=== PATIENT | female | born 1955 | race Caucasian/White ===

== ENCOUNTER → 2017-06-03 | Outpatient (REF) | payer OTHER ==
[2017-06-03 16:38] LABS: FERRITIN 19 NG/ML (8-252); IRON (FE) 109 UG/DL (50-170); PERCENT SATURATION 30.4 % (13.2-45.0); TOTAL IRON BINDING CAPACITY 359 UG/DL (250-450)
[2017-06-03 16:52] LABS: VITAMIN B12 LEVEL 530 PG/ML (247-911)
== END ==
LOC: M LAB REF 16:03
DX: D64.9 Anemia, unspecified (principal)

== ENCOUNTER 2018-05-08 05:49 | Day surgery (SDC) | payer OTHER ==
[2018-05-08 06:23] LABS: HEMOGLOBIN 12.1 g/dl (12.0-15.5); MEAN CORPUSCULAR HEMOGLOBIN 31.8 pg (27.0-33.0); MEAN CORPUSCULAR HGB CONC 32.7 g/dl (32.0-36.5); MEAN CORPUSCULAR VOLUME 97.1 fl (80.0-96.0); PLATELET COUNT, AUTOMATED 229 10^3/uL (150-450); RED BLOOD COUNT 3.81 10^6/uL (4.00-5.40); RED CELL DISTRIBUTION WIDTH 13.2 % (11.5-14.5); WHITE BLOOD COUNT 5.6 10^3/uL (4.0-10.0)
[2018-05-08] MEDS: LR 1,000 ML IV ×4 (06:50→21:37)
[2018-05-08] MEDS ORDERED: KETOROLAC 60 MG/2 ML VIAL (J1885) As Ordered (07:55)
[2018-05-08] MEDS ORDERED: ONDANSETRON 4MG/2ML VIAL (J2405) As Ordered ×2 (07:55→10:44)
[2018-05-08] MEDS ORDERED: LIDOCAINE 2% INJ 100 MG/5 ML SDV (FOR ANES.) As Ordered (07:55)
[2018-05-08] MEDS ORDERED: NEOSTIGMINE 10 MG/10 ML VIAL (J2710) As Ordered (07:55)
[2018-05-08] MEDS ORDERED: GLYCOPYRROLATE INJ 0.2 MG/ML 2 ML VIAL As Ordered (07:55)
[2018-05-08] MEDS ORDERED: dexameTHASONE 4 MG/ML 1ML VIAL (J1100) As Ordered (07:55)
[2018-05-08] MEDS ORDERED: fentaNYL 250 MCG/5 ML INJECTION (J3010) As Ordered (07:55)
[2018-05-08] MEDS ORDERED: MIDAZOLAM INJ 2 MG/2 ML VIAL (J2250) As Ordered (07:55)
[2018-05-08] MEDS ORDERED: ROCURONIUM BROMIDE 50 MG/5 ML VIAL As Ordered (07:55)
[2018-05-08] MEDS ORDERED: PROPOFOL 200 MG/20 ML VIAL As Ordered (07:55)
[2018-05-08] MEDS ORDERED: ePHEDrine SULFATE 25 MG/5 ML(5MG/ML) SYRINGE As Ordered ×2 (09:10→09:48)
[2018-05-08] MEDS ORDERED: PHENYLEPHRINE INJ 10MG/ML VIAL (J2370) As Ordered (10:36)
[2018-05-08] MEDS ORDERED: PHENYLephrine HCL 500 MCG/5 ML (100MCG/ML) SYRINGE (J2370) As Ordered (10:37)
[2018-05-08] MEDS ORDERED: HYDROMORPHONE HCL 0.5 MG/ 0.5 ML SYRINGE (J1170 PER 1) As Ordered ×2 (10:38→10:44)
[2018-05-08] MEDS: HYDROMORPHONE HCL 0.5 MG/ 0.5 ML SYRINGE (J1170 PER 1) IV ×5 (10:40→11:00)
[2018-05-08] MEDS ORDERED: MORPHINE 1MG/ML IN 0.9% NACL 100ML IV BAG As Ordered (10:44)
[2018-05-08] MEDS: ONDANSETRON 4MG/2ML VIAL (J2405) IV (10:45)
[2018-05-08] MEDS ORDERED: EPIDURAL/PCA KEYS XX (10:45)
[2018-05-08] MEDS ORDERED: diphenhydrAMINE INJ 50MG/ML VIAL (J1200) IV (10:45)
[2018-05-08] MEDS ORDERED: NALOXONE INJ 0.4 MG/1 ML VIAL (J2310) IV (10:45)
[2018-05-08] MEDS: LACTATED RINGER'S 1000 ML IV (10:45)
[2018-05-08] MEDS ORDERED: NALBUPHINE HCL 10 MG/ML AMP (J2300) IV (10:45)
[2018-05-08] MEDS: PHENYLEPHRINE HCL INJ 10 MG in D5W 99 ML IV (10:45)
[2018-05-08] MEDS ORDERED: PERCOCET 5MG/325MG TAB PO (10:45)
[2018-05-08] MEDS ORDERED: fentaNYL 100 MCG/2 ML INJECTION (J3010) IV (10:45)
[2018-05-08] MEDS ORDERED: IBUPROFEN 600 MG TAB PO (11:00)
[2018-05-08] MEDS: MORPHINE 1MG/ML IN 0.9% NACL 100ML IV BAG IV (11:00)
[2018-05-09 04:10] LABS: MEAN CORPUSCULAR HEMOGLOBIN 31.9 pg (27.0-33.0); MEAN CORPUSCULAR HGB CONC 33.3 g/dl (32.0-36.5); MEAN CORPUSCULAR VOLUME 95.7 fl (80.0-96.0); PLATELET COUNT, AUTOMATED 177 10^3/uL (150-450); RED BLOOD COUNT 2.82 10^6/uL (4.00-5.40); RED CELL DISTRIBUTION WIDTH 13.2 % (11.5-14.5)
[2018-05-09] MEDS: LR 1,000 ML IV (06:08)
[2018-05-09] MEDS: NORCO, ANEXSIA 5/325MG TABLET (HYDROcodone/ACETAMINOPHEN) PO (06:29)
[2018-05-09 08:59] LABS: HEMATOCRIT 26.7 % (36.0-47.0); HEMOGLOBIN 9.2 g/dl (12.0-15.5); MEAN CORPUSCULAR HEMOGLOBIN 32.9 pg (27.0-33.0); MEAN CORPUSCULAR HGB CONC 34.5 g/dl (32.0-36.5); MEAN CORPUSCULAR VOLUME 95.4 fl (80.0-96.0); PLATELET COUNT, AUTOMATED 195 10^3/uL (150-450); RED CELL DISTRIBUTION WIDTH 13.4 % (11.5-14.5); WHITE BLOOD COUNT 12.1 10^3/uL (4.0-10.0)
== END 2018-05-09 10:50 | disposition home or self-care (01) ==
LOC: M SDC 05:49 → M MSPAV 11:58
DX: N81.2 Incomplete uterovaginal prolapse (principal); T83.9XXA Unspecified complication of genitourinary prosthetic device, implant and graft, initial encounter; Z79.899 Other long term (current) drug therapy; Y82.8 Other medical devices associated with adverse incidents; Y84.8 Other medical procedures as the cause of abnormal reaction of the patient, or of later complication, without mention of misadventure at the time of the procedure
CPT/HCPCS: 58262

== ENCOUNTER → 2018-09-15 | Outpatient (REF) | payer OTHER ==
[~2018-09-15] MED LIST: FOSA70TA PO; MULT1TAB10 PO; VITA50005 PO
[2018-09-15 12:21] LABS: PERCENT SATURATION 10.2 % (13.2-45.0)
== END ==
LOC: M LAB REF 11:48
PROVIDERS: ATTEND Internal Medicine
DX: D64.9 Anemia, unspecified (principal)

== ENCOUNTER → 2019-03-17 | Outpatient (REF) | payer OTHER ==
[2019-03-17 14:07] LABS: PERCENT SATURATION 37.1 % (13.2-45.0)
== END ==
LOC: M LAB REF 12:47
PROVIDERS: ATTEND Internal Medicine
DX: D64.9 Anemia, unspecified (principal)

== ENCOUNTER → 2019-04-06 | Outpatient (REF) | payer OTHER ==
[2019-04-06 12:21] LABS: BLOOD UREA NITROGEN 14 MG/DL (7-18); CREATININE FOR GFR 0.52 MG/DL (0.55-1.30); GLOMERULAR FILTRATION RATE > 60.0 (>45)
== END ==
LOC: M LABDRAW1 11:14
PROVIDERS: ATTEND Orthopaedic Surgery
DX: M67.472 Ganglion, left ankle and foot (principal)

== ENCOUNTER 2019-06-11 07:51 | Day surgery (SDC) | payer OTHER ==
[~2019-06-11] VITALS: Ht 165.1 cm; Wt 42.5 kg
[~2019-06-11 07:51] MED LIST changes: +FERR325T3 PO; +MULTCAP PO; +NS 1,000 ML IV ONE
[2019-06-11] MEDS ORDERED: PROL60SO SC (08:20)
[2019-06-11] MEDS ORDERED: propofoL 200 MG/20 ML VIAL As Ordered ONE ×3 (08:25→08:53)
[2019-06-11] MEDS ORDERED: LIDOCAINE 2% INJ 100 MG/5 ML SDV (FOR ANES.) As Ordered ONE (08:25)
[2019-06-11] MEDS ORDERED: ePHEDrine SULFATE 25 MG/5 ML(5MG/ML) SYRINGE As Ordered ONE (08:36)
[2019-06-11] MEDS ORDERED: PHENYLephrine HCL 500 MCG/5 ML (100MCG/ML) SYRINGE (J2370) As Ordered ONE (08:36)
--- NOTE | 2019-06-11 08:58 | ROOR ---
Patient Name: Micaela Mccollum Procedure Date: 06/11/2019 8:26 AM Date of : 1955 Age: 63 Room: [facility] Gender: Female Note Status: Finalized Procedure: Upper GI endoscopy Indications: Iron deficiency anemia Providers: Anthony Soria Jr, MD Referring MD: Emy Toledo DO Requesting Provider: Medicines: Propofol per Anesthesia Complications: No immediate complications. Procedure: Pre-Anesthesia Assessment: - Prior to the procedure, a History and Physical was performed, and patient medications and allergies were reviewed. The patient is competent. The risks and benefits of the procedure and the sedation options and risks were discussed with the patient. All questions were answered and informed consent was obtained. Patient identification and proposed procedure were verified by the physician and the nurse in the pre-procedure area and in the procedure room. Mental Status Examination: alert and oriented. Airway Examination: normal oropharyngeal airway and neck mobility. Respiratory Examination: clear to auscultation. CV Examination: normal. ASA Grade Assessment: II - A patient with mild systemic disease. After reviewing the risks and benefits, the patient was deemed in satisfactory condition to undergo the procedure. The anesthesia plan was to use moderate sedation / analgesia (conscious sedation). Immediately prior to administration of medications, the patient was re-assessed for adequacy to receive sedatives. The heart rate, respiratory rate, oxygen saturations, blood pressure, adequacy of pulmonary ventilation, and response to care were monitored throughout the procedure. The physical status of the patient was re-assessed after the procedure. The Endoscope was introduced through the mouth, and advanced to the second part of duodenum. The upper GI endoscopy was accomplished without difficulty. The patient tolerated the procedure well. Findings: The upper third of the esophagus, middle third of the esophagus and lower third of the esophagus were normal. A medium-sized hiatal hernia was present. The cardia, gastric fundus, gastric antrum, prepyloric region of the stomach and pylorus were normal. Two non-bleeding linear gastric ulcers were found in the gastric body. The largest lesion was 2 mm in largest dimension. Biopsies were taken with a cold forceps for histology. To prevent bleeding after the biopsy, one hemostatic clip was successfully placed. There was no bleeding at the end of the procedure. The duodenal bulb, first portion of the duodenum and second portion of the duodenum were normal. Impression: - Normal upper third of esophagus, middle third of esophagus and lower third of esophagus. - Medium-sized hiatal hernia. - Normal cardia, gastric fundus, antrum, prepyloric region of the stomach and pylorus. - Non-bleeding gastric ulcers. Biopsied. Clip was placed. - Normal duodenal bulb, first portion of the duodenum and second portion of the duodenum. Recommendation: - Discharge patient to home (ambulatory). - Return to my office in 2 weeks. Anthony Soria MD Anthony Soria Jr, MD 06/11/2019 8:57:56 AM Electronically signed by Anthony Soria Jr, MD Number of Addenda: 0 Note Initiated On: 06/11/2019 8:26 AM Estimated Blood Loss: Estimated blood loss: none.
--- NOTE | 2019-06-11 09:00 | ROOR ---
Patient Name: Micaela Mccolulm Procedure Date: 06/11/2019 8:27 AM Date of : 1955 Age: 63 Room: [facility] Gender: Female Note Status: Finalized Procedure: Colonoscopy Indications: Iron deficiency anemia Providers: Anthony Soria Jr, MD Referring MD: Emy Toledo DO Requesting Provider: Medicines: Propofol per Anesthesia Complications: No immediate complications. Procedure: Pre-Anesthesia Assessment: - Prior to the procedure, a History and Physical was performed, and patient medications and allergies were reviewed. The patient is competent. The risks and benefits of the procedure and the sedation options and risks were discussed with the patient. All questions were answered and informed consent was obtained. Patient identification and proposed procedure were verified by the physician and the nurse in the pre-procedure area and in the procedure room. Mental Status Examination: alert and oriented. Airway Examination: normal oropharyngeal airway and neck mobility. Respiratory Examination: clear to auscultation. CV Examination: normal. ASA Grade Assessment: II - A patient with mild systemic disease. After reviewing the risks and benefits, the patient was deemed in satisfactory condition to undergo the procedure. The anesthesia plan was to use moderate sedation / analgesia (conscious sedation). Immediately prior to administration of medications, the patient was re-assessed for adequacy to receive sedatives. The heart rate, respiratory rate, oxygen saturations, blood pressure, adequacy of pulmonary ventilation, and response to care were monitored throughout the procedure. The physical status of the patient was re-assessed after the procedure. The Colonoscope was introduced through the anus and advanced to the cecum, identified by appendiceal orifice and ileocecal valve. The colonoscopy was performed without difficulty. The patient tolerated the procedure well. The quality of the bowel preparation was adequate. Findings: The rectum, recto-sigmoid colon, sigmoid colon, descending colon, transverse colon, ascending colon, cecum, appendiceal orifice and ileocecal valve appeared normal. Impression: - The rectum, recto-sigmoid colon, sigmoid colon, descending colon, transverse colon, ascending colon, cecum, appendiceal orifice and ileocecal valve are normal. - No specimens collected. Recommendation: - Discharge patient to home (ambulatory). - Repeat colonoscopy in 10 years for screening purposes. Anthony Soria MD Anthony Soria Jr, MD 06/11/2019 8:59:47 AM Electronically signed by Anthony Soria Jr, MD Number of Addenda: 0 Note Initiated On: 06/11/2019 8:27 AM Estimated Blood Loss: Estimated blood loss: none.
[2019-06-11 09:25] VITALS: BP 90/53
== END 2019-06-11 09:34 | disposition home or self-care (01) ==
LOC: M OPP 07:51
PROVIDERS: ATTEND Surgery
DX: K44.9 Diaphragmatic hernia without obstruction or gangrene (principal); K25.9 Gastric ulcer, unspecified as acute or chronic, without hemorrhage or perforation; D50.9 Iron deficiency anemia, unspecified

== ENCOUNTER → 2019-06-16 | Outpatient (REF) | payer OTHER ==
[~2019-06-16] MED LIST changes: -NS 1,000 ML IV ONE; +PROL60SO SC
== END ==
LOC: M LAB REF 17:52
PROVIDERS: ATTEND Orthopaedic Surgery
DX: I80.02 Phlebitis and thrombophlebitis of superficial vessels of left lower extremity (principal)

== ENCOUNTER → 2020-02-16 | Outpatient (REF) | payer OTHER ==
[2020-02-16 14:31] LABS: PERCENT SATURATION 35.6 % (13.2-45.0)
== END ==
LOC: M LAB REF 12:23
PROVIDERS: ATTEND Internal Medicine
DX: D50.9 Iron deficiency anemia, unspecified (principal)

== ENCOUNTER → 2020-09-13 | Outpatient (REF) | payer OTHER | LOC: M LAB REF 12:10 | PROVIDERS: ATTEND Internal Medicine | DX: M81.0 Age-related osteoporosis without current pathological fracture (principal) ==

== ENCOUNTER → 2021-01-25 | Outpatient (CLI) | payer OTHER ==
[~2021-01-25] MED LIST changes: +ERGO500029 PO; +MULT-90 PO
== END ==
LOC: M LABSMTC 09:27
PROVIDERS: ATTEND Anesthesiology
DX: Z01.812 Encounter for preprocedural laboratory examination (principal)

== ENCOUNTER 2021-01-27 08:26 | Day surgery (SDC) | payer MEDICARE ==
[~2021-01-27] VITALS: Ht 165.1 cm; Wt 40.8 kg
[~2021-01-27 08:26] MED LIST changes: +BSS IRR 500ML/OMIDRIA 4ML IRR BAG (OR ONLY) As Ordered ONE; +BSS IRR 500ML/OMIDRIA 4ML IRR BAG (OR ONLY) IO ONE; +CEFUROXIME 1MG/0.1ML INTRACAMERAL INJ As Ordered ONE; +CEFUROXIME 1MG/0.1ML INTRACAMERAL INJ ICAM ONE; +DUOVISC (0.50ML VISCOAT/0.85ML PROVISC) OPHTH KIT As Ordered ONE; +LIDOCAINE 1% SDV 5ML VIAL As Ordered ONE; +MIDAZOLAM INJ 2MG/2ML VIAL (J2250 PER 1MG) As Ordered ONE; +OFLOXACIN 0.3 % (OCUFLOX) OPTH SOL 5ML OD SCH; +PHENYLEPHRINE 2.5% OPHTH SOL 2ML OD SCH; +PROPARACAINE 0.5% OPHTH SOL 15ML OD ONE; +TROPICAMIDE 1% OPHTH SOLN 2ML OD SCH
[2021-01-27] MEDS ORDERED: MIDAZOLAM INJ 2MG/2ML VIAL (J2250 PER 1MG) As Ordered ONE (09:19)
[2021-01-27 11:00] VITALS: BP 141/55
--- NOTE | 2021-01-27 15:56 | ROOPDOC ---
[facility] Report Of Operation Report of Operation DATE OF PROCEDURE: 01/27/21 PREPROCEDURE DIAGNOSES: Mature cataract right eye. POSTPROCEDURE DIAGNOSES: Same. PROCEDURE PERFORMED: Phacoemulsification cataract extraction implantation intraocular lens right eye. SURGEON: Remberto Romeo MD LABORATORY TECHNICIAN: None ANESTHESIA: MAC. ESTIMATED BLOOD LOSS: Approximately 0 cc mL. COMPLICATIONS: None. LENS: 20.5. diopters SPECIMENS REMOVED: None INDICATIONS: Patient experienced decreased vision associated with cataract formation. Slit-lamp examination confirmed the diagnosis. Informed consent was obtained for removal of the cataract and placement of intraocular lens. PROCEDURE NOTE: Patient was identified in the holding room and the operative eye was marked. Patient was wheeled spine the OR suite and positioned on the stretcher. The lids lashes and periocular face of the operative eye were prepped with 5% povidone iodine. The lashes were taped with a Tegaderm andreina ssing. A speculum was placed in the operative eye. 1 mm side-port was created. 1% preservative-free lidocaine was injected. Viscoat was injected. A 2.6 mm stepped groove clear cornea incision was made temporally. A bent cystotome needle and Utrata forceps were used to fashion a continuous curvilinear capsulorhexis. BSS was used to hydrodissect. The lens was found to rotate freely. The lens was phacoemulsified using a divide and conquer technique. Residual cortex was removed with the I/A. Provisc was injected to expand the capsular bag. The lens was injected using the lens delivery system and positioned with a Devon hook. Residual viscoelastic was removed with the I/A. BSS was used to hydrate the corneal wound. Antibiotic prophylaxis was injected. The speculum was removed from the eye. A shield was taped over the eye. The patient was sent in excellent condition to the recovery room with a shield. REMBERTO ROMEO M.D. Jan 27, 2021 15:56
== END 2021-01-27 11:20 | disposition home or self-care (01) ==
LOC: M SDC 08:26
PROVIDERS: ATTEND Ophthalmology
DX: H25.11 Age-related nuclear cataract, right eye (principal); D64.9 Anemia, unspecified; M81.0 Age-related osteoporosis without current pathological fracture; F41.9 Anxiety disorder, unspecified; Z79.899 Other long term (current) drug therapy
CPT/HCPCS: 66984; J1097; J2250; U0002; V2632

== ENCOUNTER → 2021-03-06 | Outpatient (CLI) | payer MEDICARE ==
[~2021-03-06] MED LIST changes: -BSS IRR 500ML/OMIDRIA 4ML IRR BAG (OR ONLY) As Ordered ONE; -BSS IRR 500ML/OMIDRIA 4ML IRR BAG (OR ONLY) IO ONE; -CEFUROXIME 1MG/0.1ML INTRACAMERAL INJ As Ordered ONE; -CEFUROXIME 1MG/0.1ML INTRACAMERAL INJ ICAM ONE; -DUOVISC (0.50ML VISCOAT/0.85ML PROVISC) OPHTH KIT As Ordered ONE; -LIDOCAINE 1% SDV 5ML VIAL As Ordered ONE; -MIDAZOLAM INJ 2MG/2ML VIAL (J2250 PER 1MG) As Ordered ONE; -OFLOXACIN 0.3 % (OCUFLOX) OPTH SOL 5ML OD SCH; -PHENYLEPHRINE 2.5% OPHTH SOL 2ML OD SCH; -PROPARACAINE 0.5% OPHTH SOL 15ML OD ONE; -TROPICAMIDE 1% OPHTH SOLN 2ML OD SCH
== END ==
LOC: M LABSMTC 09:19
PROVIDERS: ATTEND Anesthesiology
DX: Z01.812 Encounter for preprocedural laboratory examination (principal); Z20.822 Contact with and (suspected) exposure to COVID-19

== ENCOUNTER 2021-03-10 07:27 | Day surgery (SDC) | payer MEDICARE ==
[~2021-03-10] VITALS: Ht 165.1 cm; Wt 39.6 kg
[~2021-03-10 07:27] MED LIST changes: +BSS IRR 500ML/OMIDRIA 4ML IRR BAG (OR ONLY) As Ordered ONE; +CEFUROXIME 1MG/0.1ML INTRACAMERAL INJ As Ordered ONE; +DUOVISC (0.50ML VISCOAT/0.85ML PROVISC) OPHTH KIT As Ordered ONE; +MIDAZOLAM INJ 2MG/2ML VIAL (J2250 PER 1MG) As Ordered ONE; +PHENYLEPHRINE 1.5%/LIDOCAINE 1% INTRAOCULAR 0.8ML SYRINGE As Ordered ONE; +PROPARACAINE 0.5% OPHTH SOL 15ML OS ONE; +fentaNYL 100 MCG/2 ML INJECTION (J3010) As Ordered ONE
[2021-03-10] MEDS: TROPICAMIDE 1% OPHTH SOLN 2ML OS SCH ×2 (08:09→08:16)
[2021-03-10] MEDS: OFLOXACIN 0.3 % (OCUFLOX) OPTH SOL 5ML OS SCH ×2 (08:09→08:16)
[2021-03-10] MEDS: PHENYLEPHRINE 2.5% OPHTH SOL 2ML OS SCH ×2 (08:09→08:16)
[2021-03-10] MEDS ORDERED: MIDAZOLAM INJ 2MG/2ML VIAL (J2250 PER 1MG) As Ordered ONE (08:49)
[2021-03-10 09:36] VITALS: BP 112/48
--- NOTE | 2021-03-10 13:49 | ROOPDOC ---
[facility] Report Of Operation Report of Operation PREPROCEDURE DIAGNOSES: Mature cataract left eye. POSTPROCEDURE DIAGNOSES: Same. PROCEDURE PERFORMED: Phacoemulsification cataract extraction implantation intraocular lens left eye. SURGEON: Remberto Romeo MD DATA ANALYST REPORT WRITER: None ANESTHESIA: MAC. ESTIMATED BLOOD LOSS: Approximately 0 cc mL. COMPLICATIONS: None. LENS: 20.5. diopters SPECIMENS REMOVED: None INDICATIONS: Patient experienced decreased vision associated with cataract formation. Slit-lamp examination confirmed the diagnosis. Informed consent was obtained for removal of the cataract and placement of intraocular lens. PROCEDURE NOTE: Patient was identified in the holding room and the operative eye was marked. Patient was wheeled spine the OR suite and positioned on the stretcher. The lids lashes and periocular face of the operative eye were prepped with 5% povidone iodine. The lashes were taped with a Tegaderm dressing. A speculum was placed in the operative eye. 1 mm side-port was created. 1% preservative-free lidocaine was injected. Viscoat was injected. A 2.6 mm stepped groove clear cornea incision was made temporally. A bent cystotome needle and Utrata forceps were used to fashion a continuous cu rvilinear capsulorhexis. BSS was used to hydrodissect. The lens was found to rotate freely. The lens was phacoemulsified using a divide and conquer technique. Residual cortex was removed with the I/A. Provisc was injected to expand the capsular bag. The lens was injected using the lens delivery system and positioned with a Devon hook. Residual viscoelastic was removed with the I/A. BSS was used to hydrate the corneal wound. Antibiotic prophylaxis was injected. The speculum was removed from the eye. A shield was taped over the eye. The patient was sent in excellent condition to the recovery room with a shield. REMBERTO ROMEO M.D. Mar 10, 2021 13:49
== END 2021-03-10 09:50 | disposition home or self-care (01) ==
LOC: M SDC 07:27
PROVIDERS: ATTEND Ophthalmology
DX: H25.12 Age-related nuclear cataract, left eye (principal); D64.9 Anemia, unspecified; M81.0 Age-related osteoporosis without current pathological fracture; Z79.899 Other long term (current) drug therapy
CPT/HCPCS: 66984; J1097; J2250; J3010; V2632

== ENCOUNTER → 2021-03-16 | Outpatient (REF) | payer MEDICARE, OTHER ==
[~2021-03-16] MED LIST changes: -BSS IRR 500ML/OMIDRIA 4ML IRR BAG (OR ONLY) As Ordered ONE; -CEFUROXIME 1MG/0.1ML INTRACAMERAL INJ As Ordered ONE; -DUOVISC (0.50ML VISCOAT/0.85ML PROVISC) OPHTH KIT As Ordered ONE; -MIDAZOLAM INJ 2MG/2ML VIAL (J2250 PER 1MG) As Ordered ONE; -PHENYLEPHRINE 1.5%/LIDOCAINE 1% INTRAOCULAR 0.8ML SYRINGE As Ordered ONE; -PROPARACAINE 0.5% OPHTH SOL 15ML OS ONE; -fentaNYL 100 MCG/2 ML INJECTION (J3010) As Ordered ONE
[2021-03-16 12:18] LABS: PERCENT SATURATION 39.6 % (13.2-45.0); PHOSPHORUS LEVEL 4.1 MG/DL (2.5-4.9)
== END ==
LOC: M LAB REF 11:35
PROVIDERS: ATTEND Internal Medicine
DX: D50.9 Iron deficiency anemia, unspecified (principal)

== ENCOUNTER → 2021-06-12 | Outpatient (CLI) | payer MEDICARE, OTHER | LOC: M WHC 10:53 | PROVIDERS: ATTEND Internal Medicine | DX: Z12.31 Encounter for screening mammogram for malignant neoplasm of breast (principal); Z13.820 Encounter for screening for osteoporosis; M85.88 Other specified disorders of bone density and structure, other site; M85.851 Other specified disorders of bone density and structure, right thigh; M85.852 Other specified disorders of bone density and structure, left thigh ==

== ENCOUNTER → 2021-09-18 | Outpatient (REF) | payer MEDICARE, OTHER ==
[2021-09-18 13:38] LABS: PERCENT SATURATION 27.3 % (13.2-45.0)
== END ==
LOC: M LAB REF 12:00
PROVIDERS: ATTEND Internal Medicine
DX: D50.9 Iron deficiency anemia, unspecified (principal)

== ENCOUNTER 2021-09-23 04:26 | Emergency (ER) | payer MEDICARE, OTHER ==
[~2021-09-23] VITALS: Ht 165.1 cm; Wt 40.3 kg
[2021-09-23] MEDS ORDERED: NS 500 ML IV ONE (07:05)
[2021-09-23 07:34] VITALS: O2SAT 94
[2021-09-23 07:38] LABS: BASO % 0.2 % (0.0-1.0); EOS % 0.2 % (0.0-3.0); HEMATOCRIT 34.3 % (36.0-47.0); HEMOGLOBIN 11.4 g/dl (12.0-15.5); LYMPH # 0.8 10^3/uL (1.5-5.0); MEAN CORPUSCULAR HEMOGLOBIN 31.8 pg (27.0-33.0); MEAN CORPUSCULAR HGB CONC 33.2 g/dl (32.0-36.5); MEAN CORPUSCULAR VOLUME 95.8 fl (80.0-96.0); MONO # 0.9 10^3/uL (0.0-0.8); MONO % 10.7 % (2.0-8.0); NEUTROPHILS # 6.6 10^3/uL (1.5-8.5); NEUTROPHILS % 79.7 % (36.0-66.0); PLATELET COUNT, AUTOMATED 183 10^3/uL (150-450); RED BLOOD COUNT 3.58 10^6/uL (4.00-5.40); WHITE BLOOD COUNT 8.3 10^3/uL (4.0-10.0)
[2021-09-23] MEDS ORDERED: PRIM50TA6 (07:38)
[2021-09-23] MEDS ORDERED: ROPI0.5T3 (07:38)
[2021-09-23 08:06] LABS: ALBUMIN 3.4 GM/DL (3.2-5.2); ALT/SGPT 30 U/L (12-78); BILIRUBIN,DIRECT < 0.1 MG/DL (0.0-0.2); BILIRUBIN,TOTAL 0.4 MG/DL (0.2-1.0); TOTAL PROTEIN 6.2 GM/DL (6.4-8.2)
[2021-09-23] MEDS ORDERED: ACETAMINOPHEN TAB 650MG DOSE (2X325MG) PO PRN (08:10)
[2021-09-23] MEDS ORDERED: ALBUTEROL 90 MCG/ACT 8GM HFA INHALER INH PRN (08:10)
[2021-09-23] MEDS ORDERED: ALBUTEROL SULFATE 2.5 MG/0.5 ML INH NEB SOLN INH PRN (08:10)
[2021-09-23] MEDS ORDERED: diphenhydrAMINE 50MG/ML VIAL (J1200) IV PRN (08:10)
[2021-09-23] MEDS ORDERED: methylPREDNISolone 125MG 2ML VIAL IV PRN (08:10)
[2021-09-23] MEDS ORDERED: BEBTELOVIMAB 175MG 2ML VIAL (EUA) IV ONE (08:10)
[2021-09-23] MEDS ORDERED: EPINEPHrine INJ 1 MG/ML 1ML AMP IM PRN (08:10)
[2021-09-23 09:45] VITALS: BP 91/52
== END 2021-09-23 09:55 | disposition home or self-care (01) ==
LOC: M ED 04:26
DX: U07.1 COVID-19 (principal); Z87.01 Personal history of pneumonia (recurrent); M81.0 Age-related osteoporosis without current pathological fracture; Z79.810 Long term (current) use of selective estrogen receptor modulators (SERMs); Z79.899 Other long term (current) drug therapy

== ENCOUNTER 2021-09-23 08:39 | Outpatient (CLI) | payer MEDICARE, OTHER ==
[~2021-09-23] VITALS: Ht 165.1 cm; Wt 39.5 kg
[~2021-09-23 08:39] MED LIST changes: +PRIM50TA6; +ROPI0.5T3
[2021-09-23] MEDS ORDERED: EPINEPHrine INJ 1 MG/ML 1ML AMP IM PRN (09:10)
[2021-09-23] MEDS ORDERED: ACETAMINOPHEN TAB 650MG DOSE (2X325MG) PO PRN (09:10)
[2021-09-23] MEDS ORDERED: methylPREDNISolone 125MG 2ML VIAL IV PRN (09:10)
[2021-09-23] MEDS ORDERED: diphenhydrAMINE 50MG/ML VIAL (J1200) IV PRN (09:10)
[2021-09-23] MEDS ORDERED: NS 1,000 ML IV SCH (09:10)
[2021-09-23] MEDS ORDERED: ALBUTEROL SULFATE 2.5 MG/0.5 ML INH NEB SOLN INH PRN (09:10)
[2021-09-23] MEDS ORDERED: ALBUTEROL 90 MCG/ACT 8GM HFA INHALER INH PRN (09:10)
[2021-09-23 10:55] VITALS: BP 82/45
[2021-09-23 11:00] VITALS: BP 84/50
[2021-09-23] MEDS ORDERED: BEBTELOVIMAB 175MG 2ML VIAL (EUA) IV ONE (11:00)
[2021-09-23 11:50] VITALS: BP 100/54
[2021-09-23 12:31] VITALS: BP 92/48
== END 2021-09-23 12:49 | disposition home or self-care (01) ==
LOC: M OPCLI4 08:39 → M 4MAIN 10:05 → M OPCLI4 12:49
PROVIDERS: ATTEND Internal Medicine
DX: U07.1 COVID-19 (principal)

== ENCOUNTER → 2022-03-16 | Outpatient (REF) | payer MEDICARE, OTHER, MEDICAID ==
[~2022-03-16] MED LIST changes: +ALEN70TA87 PO; -FOSA70TA PO
== END ==
LOC: M LAB REF 16:05
PROVIDERS: ATTEND Internal Medicine
DX: M81.0 Age-related osteoporosis without current pathological fracture (principal)

== ENCOUNTER → 2022-07-20 | Outpatient (REF) | payer MEDICARE, OTHER, MEDICAID ==
[2022-07-20 12:38] LABS: PERCENT SATURATION 40.7 % (13.2-45.0)
[2022-07-20 12:39] LABS: FERRITIN 96.9 NG/ML (7.3-270.7)
== END ==
LOC: M LAB REF 11:34
PROVIDERS: ATTEND Internal Medicine
DX: D50.9 Iron deficiency anemia, unspecified (principal)

== ENCOUNTER → 2022-09-12 | Outpatient (REF) | payer MEDICARE, OTHER, MEDICAID | LOC: M LAB REF 12:20 | PROVIDERS: ATTEND Internal Medicine | DX: Z79.899 Other long term (current) drug therapy (principal) ==

== ENCOUNTER → 2022-11-29 | Outpatient (CLI) | payer MEDICARE ==
[~2022-11-29] MED LIST changes: -ROPI0.5T3; +ROPI0.5T33
== END ==
LOC: M WHC 07:31
PROVIDERS: ATTEND Internal Medicine
DX: Z12.31 Encounter for screening mammogram for malignant neoplasm of breast (principal)

== ENCOUNTER → 2022-12-18 | Outpatient (CLI) | payer MEDICARE | LOC: M WHC 07:58 | PROVIDERS: ATTEND Internal Medicine | DX: R92.8 Other abnormal and inconclusive findings on diagnostic imaging of breast (principal) | CPT/HCPCS: 76642; 77065; G0279 ==

== ENCOUNTER → 2023-03-28 | Outpatient (REF) | payer MEDICARE, OTHER ==
[2023-03-28 12:39] LABS: PERCENT SATURATION 42.1 % (13.2-45.0); PHOSPHORUS LEVEL 4.4 MG/DL (2.4-5.1)
== END ==
LOC: M LAB REF 11:49
PROVIDERS: ATTEND Internal Medicine
DX: Z79.899 Other long term (current) drug therapy (principal); D50.9 Iron deficiency anemia, unspecified

== ENCOUNTER → 2023-09-27 | Outpatient (REF) | payer MEDICARE, OTHER ==
[2023-09-27 13:42] LABS: PERCENT SATURATION 39.9 % (13.2-45.0); PHOSPHORUS LEVEL 3.8 MG/DL (2.4-5.1)
[2023-09-27 14:07] LABS: FERRITIN 93.7 NG/ML (7.3-270.7)
== END ==
LOC: M LAB REF 12:24
PROVIDERS: ATTEND Internal Medicine
DX: D50.9 Iron deficiency anemia, unspecified (principal); M81.0 Age-related osteoporosis without current pathological fracture

== ENCOUNTER → 2024-04-21 | Outpatient (REF) | payer MEDICARE, OTHER | LOC: M LAB REF 12:27 | PROVIDERS: ATTEND Internal Medicine | DX: M81.0 Age-related osteoporosis without current pathological fracture (principal) ==

== ENCOUNTER → 2024-06-12 | Outpatient (CLI) | payer MEDICARE | LOC: M WHC 07:43 | PROVIDERS: ATTEND Internal Medicine | DX: Z12.31 Encounter for screening mammogram for malignant neoplasm of breast (principal); M81.0 Age-related osteoporosis without current pathological fracture; R92.333 Mammographic heterogeneous density, bilateral breasts ==

== ENCOUNTER → 2024-07-08 | Outpatient (CLI) | payer MEDICARE | LOC: M WHC 09:04 | PROVIDERS: ATTEND Internal Medicine | DX: R92.8 Other abnormal and inconclusive findings on diagnostic imaging of breast (principal); R92.322 Mammographic fibroglandular density, left breast | CPT/HCPCS: 77065; G0279 ==